=== PATIENT | female | born 1960 | race Two or more races ===

== ENCOUNTER 2016-08-15 13:53 | Inpatient (IN) | payer OTHER ==
[~2016-08-15] VITALS: Ht 154.9 cm; Wt 112.5 kg
[2016-10-20] MEDS ORDERED: TRAM50TA PO (10:17)
[2016-10-20] MEDS ORDERED: NEXI40CA PO (10:17)
[2016-10-20] MEDS ORDERED: BIOT10TA PO (10:17)
[2016-10-20] MEDS ORDERED: ATOR20TA15 PO (10:17)
[2016-10-20] MEDS ORDERED: BUPR150XL PO (10:17)
[2016-11-04] MEDS ORDERED: PRED5TAB PO (09:28)
[2016-11-05] MEDS ORDERED: SODIUM CHLORID 0.9% 500 ML IV PRN (06:00)
[2016-11-05] MEDS ORDERED: CLINDAMYCIN 900 MG/NS 100 ML IV SCH ×2 (06:00)
[2016-11-05] MEDS ORDERED: LACTATED RINGER'S 1000 ML IV PRN (06:00)
[2016-11-05] MEDS ORDERED: POVIDONE IODINE 7.5% SCRUB 118 ML BOTTLE TOPICAL SCH (06:00)
[2016-11-05] MEDS ORDERED: POVIDONE IODINE 5% (ANTISEPSIS KIT) 4 APPLICATIONS EACH NARE PRN (06:00)
[2016-11-05] MEDS ORDERED: DEXAMETHASONE SOD PHOS 4 MG/ML VIAL IV SCH (06:00)
[2016-11-05] MEDS ORDERED: INSULIN HUMAN REGULAR 1,000 UNITS/10 ML VIAL SQ PRN (06:00)
[2016-11-05] MEDS ORDERED: CHLORHEXIDINE GLUCONATE 2 % 1 PACK (2 CLOTHS) TOPICAL PRN (06:00)
[2016-11-05] MEDS ORDERED: METOPROLOL TARTRATE 25 MG TAB PO PRN (06:00)
[2016-11-05] MEDS ORDERED: VANCOMYCIN 1000 MG/NS 250 ML (for <70 kg) IV SCH ×2 (06:00)
[2016-11-05] MEDS ORDERED: DEXAMETHASONE SOD PHOS 20 MG/5 ML VIAL ONE (06:15)
[2016-11-05] MEDS ORDERED: SODIUM CHLORIDE 0.9% INJ 100 ML ONE (06:17)
[2016-11-05] MEDS ORDERED: GABA300C5 PO (06:35)
[2016-11-05 06:40] VITALS: BP 121/68; PULSE 77; RESP 16; TEMP 98.2; O2SAT 97
--- NOTE | 2016-11-05 06:51 | HHI.DCPOC ---
Discharge Care Plan Diagnosis: (1) Status post total knee replacement, right (2) Primary localized osteoarthrosis, lower leg Your Health Problems Are: Difficulty with ADL Goals to Promote Your Health * To prevent worsening of your condition and complications * To maintain your health at the optimal level Directions to Meet Your Goals Take your medications as prescribed Follow your dietary instruction Follow activity as directed Keep your appointments as scheduled Take your immunizations and boosters as scheduled If your symptoms worsen call your PCP, if no PCP go to Urgent Care Center or Emergency Room Smoking is Dangerous to Your Health. Avoid second hand smoke Call the 24-hour hour crisis hotline for domestic abuse at Janak Buckner Nov 05, 2016 06:51
--- NOTE | 2016-11-05 06:52 | HHI.FF ---
Face to Face Verification Diagnosis: (1) Primary localized osteoarthrosis, lower leg (2) Status post total knee replacement, right Physical Therapy Gait training, Transfer training, bed to chair Knee: Total knee Right LE Weight Bearing: WB as tolerated Right LE Range of Motion: Active ROM Nursing Nursing: Jason teaching, Dressing changes Dressing Changes: Daily dressing change I have seen patient Una Pelaez on 11/05/16. My clinical findings support the need for the requested home health care services because: Limited ability to care for self High risk of falls I certify that my clinical findings support that this patient is homebound because: Post-op weakness Unsteady gait/balance Janak Buckner Nov 05, 2016 06:51
[2016-11-05] MEDS ORDERED: WALKER WHEELS/F1 MIS (06:53)
[2016-11-05] MEDS ORDERED: CPMMACHINE (06:53)
[2016-11-05] MEDS ORDERED: COMMODE 3-IN-11 MIS (06:53)
[2016-11-05] MEDS ORDERED: ACETAMINOPHEN 1000 MG/100 ML VIAL IV ONE (07:48)
[2016-11-05] MEDS ORDERED: fentaNYL CITRATE 250 MCG/5 ML AMP ONE ×2 (07:48→11:01)
[2016-11-05] MEDS ORDERED: MIDAZOLAM HCL 2 MG/2 ML VIAL ONE (07:48)
[2016-11-05] MEDS ORDERED: FAMOTIDINE 20 MG/2 ML VIAL ONE (07:49)
[2016-11-05] MEDS ORDERED: GENTAMICIN SULFATE 80 MG/2 ML VIAL ONE (08:18)
[2016-11-05] MEDS ORDERED: TRANEXAMIC ACID INJ 1,125 MG in SODIUM CHLORIDE 0.9% INJ 100 ML IV SCH ×2 (08:30→11:15)
[2016-11-05] MEDS ORDERED: ROPIVACAINE PERI-ARTICULAR INJECTION. P-ARTICULR SCH ×5 (08:30)
[2016-11-05] MEDS ORDERED: BUPIVACAINE LIPOSOME PF 1.3% 20 ML VIAL ONE (10:23)
[2016-11-05] MEDS ORDERED: ACETAMINOPHEN/HYDROcodone 325 MG/5 MG TAB PO PRN (10:30)
[2016-11-05] MEDS ORDERED: ZOLPIDEM TARTRATE 5 MG TAB PO PRN (10:30)
[2016-11-05] MEDS ORDERED: MORPHINE SULFATE 4 MG/ML INJ IV PUSH PRN (10:30)
[2016-11-05] MEDS ORDERED: ALUMINUM/MAGNESIUM/SIMETH 30 ML CUP PO PRN (10:30)
[2016-11-05] MEDS ORDERED: SODIUM CHLORIDE 0.9% FLUSH 5 ML FLUSH IVF PRN (10:30)
[2016-11-05] MEDS ORDERED: ONDANSETRON HCL 4 MG/2 ML VIAL IVP PRN (10:30)
[2016-11-05] MEDS ORDERED: BISACODYL 10 MG SUPP RECTAL PRN (10:30)
[2016-11-05] MEDS ORDERED: NALOXONE HCL 0.4 MG/ML AMP IV PRN (10:30)
[2016-11-05] MEDS ORDERED: diphenhydrAMINE HCL 50 MG/ML VIAL IV PRN (10:30)
--- NOTE | 2016-11-05 10:31 | PD.OP ---
cc: Augustin Metz MD Operative Report Date of Surgery: Nov 05, 2016 Preoperative Diagnosis: Right knee severe osteoarthritis Postoperative Diagnosis: Same Procedure: Right total knee arthroplasty Anesthesia: Adductor canal block and general Surgeon: Augustin Metz Rotor Winder(s): BENTON Burnett The surgical procedure was assisted by my Advanced Registered Nurse Practitioner. My SCIENTIFIC PUBLICATIONS EDITOR presence was necessary throughout this case for the manipulation and positioning of the surgical extremity. My SCIENTIFIC PUBLICATIONS EDITOR was assisting me throughout the duration of this procedure. The skill set of an Advance Registered Nurse Practitioner was medically necessary to complete this procedure. During the surgical case, the surgical physician assistant was working at the back table and the Advance Registered Nurse Practitioner was directly assisting me. Operation and Findings: IMPLANTS: DePuy Attune: Patella: size 32. Femur, posterior stabilized size 4. Tibia, rotating platform size 3. Tibial insert, rotating platform, posterior stabilized size 5 mm thickness. ESTIMATED BLOOD LOSS: 350 cc TOURNIQUET TIME: 54 minutes at 300 mmHg pressure. JUSTIFICATION FOR PROCEDURE: The patient has end-stage osteoarthritis to the knee. There is an attached conservative measures pathway form in the chart that describes the nonoperative measures that were undertaken prior to consideration of surgical management. The patient understood the risks and benefits of surgical management. See my office notes for further details PROCEDURE: The patient was brought back to the operative theatre. Adequate anesthesia was obtained. The patient received intravenous clindamycin and vancomycin. The lower extremity was prepped and draped in the usual sterile fashion.The leg was exsanguinated, the tourniquet was raised. A standard anterior incision was performed followed by medial parapatellar arthrotomy was performed. End-stage arthritis was identified. Osteotomy of the patella was performed. We drilled holes for the patella. We trialed the patella component. We placed an intramedullary guide into the distal femur. We ultimately resected 13 mm off of the distal femur in 5 degrees of valgus. The remnants of the ACL and PCL were resected. Osteotomy of the proximal tibia was performed, resecting 5 mm off of the medial side. This was done with 3 degrees of posterior slope using an extramedullary guide. The distal end of the guide was placed in the mid aspect of the ankle. The femur was sized, and four chamfer cuts were completed in 3 of external rotation. We then cut the central box in the distal femur to replace the PCL. We resected the remnants of the menisci and removed osteophytes off of the femur and tibia. We then trialed the knee. We punched the tibia for the keel, and then used standard technique to cement in components. Excess cement was removed. We trialed the knee again and the final polyethylene thickness was chosen to provide extension to 0 degrees, and flexion of 140 degrees to gravity. The ligaments were appropriately balanced. Lateral release was necessary to obtain excellent patellofemoral tracking. The tourniquet was released and adequate hemostasis was obtained. An intra- articular injection of a ropivacaine cocktail was injected. The posterior knee was inspected for excess cement, which was removed. The final polyethylene was put into position after thorough irrigation. We then closed deep fascia with a #2 Stratafix followed by skin with 2-0 Vicryl followed by luis f. Postop plan is to weight-bear as tolerated. DVT prophylaxis will be performed with SCDkamla, MAXINE kemp, early mobilization, and Lovenox for 3 weeks. Augustin Metz MD Nov 05, 2016 10:31
[2016-11-05] MEDS ORDERED: ENOX40P SQ (10:33)
[2016-11-05] MEDS ORDERED: NORC5TAB PO (10:33)
[2016-11-05] MEDS ORDERED: Post-op Orders (for Pharmacy) MISC XX ONE (10:55)
[2016-11-05] MEDS: SODIUM CHLOR 0.9% 1000 ML INJ 1,000 ML IV SCH ×2 (11:05→20:28)
[2016-11-05] MEDS ORDERED: *morphine SULFATE 8 MG/ML PERIprocedure ONLY ONE ×2 (11:07→11:30)
--- NOTE | 2016-11-05 11:51 | PD.CONS ---
HPI Service [facility] [place] Hospitalists Consult Requested By Dr. Antoni Metz Reason for Consult Medical management Primary Care Physician Dr. Prasad Diagnoses: History of Present Illness Mrs. Pelaez is a pleasant 55 y/o female with hyperlipidemia and osteoarthritis. She was admitted to [facility] on 11/05/16 for right total knee arthroplasty with Dr. Metz. [facility] Hospitalist team was consulted to help with medical management. Pt is seen post-operatively in the PACU. Her vital signs are stable. Pt does not have a Mehta catheter in place. She was treated preoperatively for a [id number] UTI with Bactrim and then Levaquin. She denies any abd pain, nausea/vomiting, chest pain, SOB or palpitations. Review of Systems Constitutional: DENIES: Fever, Chills Eyes: DENIES: Vision loss Ears, nose, mouth, throat: DENIES: Hearing loss Respiratory: DENIES: Cough, Shortness of breath Cardiovascular: DENIES: Chest pain, Syncope, Lower Extremity Edema Gastrointestinal: DENIES: Abdominal pain, Diarrhea, Nausea, Vomiting Genitourinary: DENIES: Hematuria, Dysuria Musculoskeletal: COMPLAINS OF: Joint pain Integumentary: DENIES: Rash Neurologic: DENIES: Headache Psychiatric: DENIES: Confusion Past Family Social History Past Medical History Hyperlipidemia Osteoarthritis GERD Depression Past Surgical History Appendectomy Cholecystectomy Carpal tunnel release Reported Medications --Gabapentin 300 Mg PO TID (?QID) --Atorvastatin 20 Mg PO HS (?10Mg) -Tramadol (Tramadol HCl) 50 Mg Tab 50 Mg PO Q8H PRN -Biotin 10 Mg Tab 10 Mg PO DAILY -Wellbutrin Xl 24 HR (Bupropion HCl) 150 Mg Tab 150 Mg PO DAILY Allergies: Coded Allergies: Aspirin (Verified Allergy, Severe, Anaphylaxis, 11/05/16) Penicillin (Verified Allergy, Severe, Anaphylaxis, 11/05/16) Family History Noncontributory Social History Denies any alcohol, tobacco or illicit drug use Physical Exam Vital Signs Vital Signs Date Time Temp Pulse Resp B/P Pulse Ox O2 Delivery O2 Flow Rate FiO2 11/05/16 06:40 98.2 77 16 121/68 97 Physical Exam GENERAL: This is a well-nourished, well-developed patient, in no apparent distress. SKIN: No rashes, ecchymoses or lesions. Cool and dry. HEENT: Atraumatic. Normocephalic. No temporal or scalp tenderness. No scleral icterus. Airway patent. NECK: Trachea midline, supple, nontender. CARDIO: Regular. RESP: CTA bilaterally. No wheezes, rales, or rhonchi. ABD: +BS, soft, non-tender, nondistended. EXT: Right knee bandages are c/d/i NEURO: Awake and alert. Motor and sensory grossly within normal limits. Normal speech. Imaging Last Impressions Knee X-Ray 11/05/16 1028 Signed Impressions: Service Date/Time: Thursday, November 05, 2016 11:20 - CONCLUSION: 1. Status post right knee arthroplasty in anatomic alignment without significant acute bony fracture. Compa Simeon MD Assessment and Plan Problem List: (1) Status post total knee replacement, right Status: Acute Plan: - Pt s/p right TKA on 11/05/[address] Metz - Post-op pain control per Ortho - PT daily - IS - Constipation precautions. - DVT prophylaxis - Pt is planned to go home with HHC/PT at time of discharge. (2) Primary localized osteoarthrosis, lower leg Status: Chronic Plan: - See above. (3) Hyperlipidemia Status: Chronic Plan: - Pt is not on any prescription medications for cholesterol and states that she manages this with diet. Assessment and Plan Patient examined. Assessment and plan formulated with Eryn Menezes PA-C. I agree with the above. Problem Qualifiers (1) Primary localized osteoarthrosis, lower leg: Qualified Code: M17.11 - Primary localized osteoarthrosis, lower leg, right Eryn Menezes Nov 05, 2016 11:51 Brando Martini MD Nov 05, 2016 14:58
[2016-11-05] MEDS ORDERED: LACTATED RINGER'S 1000 ML INJ 1,000 ML IV ONE (12:00)
[2016-11-05] MEDS ORDERED: NEOSTIGMINE 3 MG/3 ML SYR IV ONE (12:00)
[2016-11-05] MEDS ORDERED: PROPOFOL 200 MG/20 ML AMP IV ONE (12:00)
[2016-11-05] MEDS ORDERED: ONDANSETRON HCL 4 MG/2 ML VIAL IV PUSH ONE (12:00)
--- NOTE | 2016-11-05 12:18 | RADRPT ---
EXAM DATE/TIME: 11/05/2016 11:20 [facility] COMPARISON: No previous studies available for comparison. INDICATIONS : Post-op right knee. MEDICAL HISTORY : None. SURGICAL HISTORY : None. ENCOUNTER: Initial ACUITY: 1 day PAIN SCORE: 10/10 LOCATION: Right Knee. FINDINGS: Postsurgical features of right knee arthroplasty. Arthroplasty components are in anatomic alignment. No significant acute bony fracture. Immediate postsurgical soft tissue features. CONCLUSION: 1. Status post right knee arthroplasty in anatomic alignment without significant acute bony fracture. Compa Simeon MD on November 05, 2016 at 12:15 Board Certified Radiologist. This report was verified electronically.
[2016-11-05] MEDS: GABAPENTIN 300 MG CAP PO SCH ×2 (13:00→17:13)
[2016-11-05] MEDS: ACETAMINOPHEN/HYDROcodone 325 MG/5 MG TAB PO PRN (15:43)
[2016-11-05] MEDS: CLINDAMYCIN INJ 900 MG in SODIUM CHLORIDE 0.9% INJ 100 ML IV SCH ×2 (15:47→22:37)
[2016-11-05] MEDS: MAGNESIUM HYDROXIDE SUSP 30 ML CUP PO PRN (15:52)
[2016-11-05 16:00] VITALS: BP 113/51; PULSE 82; RESP 18; TEMP 96.5; O2SAT 94
[2016-11-05 16:24] VITALS: O2SAT 96
[2016-11-05 19:00] VITALS: BP_SYST 108; BP_SYST 117; BP_DIAS 55; BP_DIAS 69; PULSE 67; PULSE 91; RESP 16; RESP 17; TEMP 95.7; TEMP 97.7; O2SAT 95; O2SAT 97
[2016-11-05] MEDS: SODIUM CHLORIDE 0.9% FLUSH 5 ML FLUSH IVF SCH (21:00)
[2016-11-05] MEDS ORDERED: ATORVASTATIN 20 MG TAB PO SCH (21:00)
[2016-11-05] MEDS: predniSONE 5 MG TAB PO SCH (21:25)
[2016-11-06 00:26] VITALS: BP 105/49; PULSE 83; RESP 16; TEMP 97.4; O2SAT 96
[2016-11-06 04:00] VITALS: BP 126/61; PULSE 83; RESP 17; TEMP 97.9; O2SAT 95
[2016-11-06 06:16] LABS: HEMATOCRIT 32.8 % (35.0-46.0); MEAN CELL VOLUME 87.5 FL (80.0-100.0); MEAN CORPUSCULAR HEMOGLOBIN 29.6 PG (27.0-34.0); MEAN CORPUSCULAR HGB CONC 33.8 % (32.0-36.0); PLATELET COUNT 272 TH/MM3 (150-450); RED BLOOD COUNT 3.74 MIL/MM3 (4.00-5.30); REVIEW FLAG FINAL; WHITE BLOOD COUNT 17.4 TH/MM3 (4.0-11.0)
[2016-11-06] MEDS: SODIUM CHLOR 0.9% 1000 ML INJ 1,000 ML IV SCH ×2 (06:28→10:08)
[2016-11-06] MEDS: CLINDAMYCIN INJ 900 MG in SODIUM CHLORIDE 0.9% INJ 100 ML IV SCH (06:38)
[2016-11-06] MEDS: ACETAMINOPHEN/HYDROcodone 325 MG/5 MG TAB PO PRN ×3 (06:38→15:30)
[2016-11-06] MEDS ORDERED: DEXAMETHASONE SOD PHOS 20 MG/5 ML VIAL IV ONE (07:45)
[2016-11-06 08:00] VITALS: BP 108/62; PULSE 83; RESP 18; TEMP 99; O2SAT 95
[2016-11-06] MEDS ORDERED: PANTOPRAZOLE SOD 40 MG DELAYED RELEASE TAB PO SCH (09:00)
[2016-11-06] MEDS: SODIUM CHLORIDE 0.9% FLUSH 5 ML FLUSH IVF SCH (09:00)
[2016-11-06] MEDS ORDERED: buPROPion HCL 150 MG SUSTAINED RELEASE TAB PO SCH (09:00)
[2016-11-06] MEDS: predniSONE 5 MG TAB PO SCH (09:52)
[2016-11-06] MEDS: MAGNESIUM HYDROXIDE SUSP 30 ML CUP PO PRN (09:53)
[2016-11-06] MEDS ORDERED: ENOXAPARIN SODIUM 40 MG/0.4 ML SYRINGE SQ SCH (10:00)
[2016-11-06] MEDS ORDERED: PNEUMOCOCCAL POLYVALENT INJ 25 MCG/0.5 ML SYR IM ONE (10:00)
[2016-11-06] MEDS ORDERED: WELLTAB39 PO (10:00)
[2016-11-06 11:58] VITALS: BP 97/59; PULSE 69; RESP 18; TEMP 97.3; O2SAT 96
--- NOTE | 2016-11-06 12:22 | PD.ORT.PN ---
Subjective Post Op Day #: 1 Subjective Remarks Patient resting comfortably with minimal pain. Patient ambulatory and voiding. Patient wants to go home with home health today. Objective Vitals Vital Signs Date Time Temp Pulse Resp B/P Pulse Ox O2 Delivery O2 Flow Rate FiO2 11/06/16 11:58 97.3 69 18 97/59 96 11/06/16 08:00 99.0 83 18 108/62 95 11/06/16 04:00 97.9 83 17 126/61 95 11/06/16 00:26 97.4 83 16 105/49 96 11/05/16 19:00 95.7 67 17 117/55 97 11/05/16 19:00 97.7 91 16 108/69 95 11/05/16 16:24 96 21 11/05/16 16:00 96.5 82 18 113/51 94 11/05/16 13:15 98.0 88 16 123/58 98 Nasal Cannula 2 11/05/16 12:30 82 16 109/59 95 Nasal Cannula 2 I/O 11/05/16 11/05/16 11/05/16 11/06/16 11/06/16 11/06/16 07:00 15:00 23:00 07:00 15:00 23:00 Intake Total 1400 ml 960 ml 480 ml Output Total 100 ml Balance 1300 ml 960 ml 480 ml Intake Oral 960 ml 480 ml IV Total 300 ml Other 1100 ml Output Estimated Blood Loss 100 ml # Voids 3 4 # Bowel Movements 0 0 Result Diagram: 11/06/16 0555 Procedures Right TKA Objective Remarks The patient's dressings were changed with scant serosanguineous drainage. Incision is well approximated with surgical clips intact. No redness or s/s of infection. Mild ecchymosis. EHL/TA/G intact. No calf tenderness or swelling. + SILT. Assessment & Plan Ortho Post Op Day #: 1 Problem List: Assessment and Plan POD #1: Right TKA 1. WBAT RLE 2. Lovenox for DVT prophylaxis x 3 weeks 3. Ice to the right knee PRN 4. Levaquin ABX for UTI RX in chart 5. Stable for discharge home with home health today. Janak Buckner Nov 06, 2016 12:22
[2016-11-06] MEDS ORDERED: LEVA500T20 PO (12:24)
[2016-11-06] MEDS: GABAPENTIN 300 MG CAP PO SCH ×2 (12:40→17:08)
[2016-11-06] MEDS ORDERED: LEVA750T9 PO (12:42)
[2016-11-06 15:54] VITALS: BP 108/62; PULSE 75; RESP 18; TEMP 97.1; O2SAT 95
[2016-11-06] MEDS ORDERED: DOCUSATE SODIUM 100 MG CAP PO SCH (21:00)
[2016-11-06] MEDS ORDERED: MULTIVITAMINS/MINERALS THERAPEUTIC TAB PO SCH (21:00)
== END 2016-11-06 18:08 | disposition home health service (06) | DRG 470 ==
LOC: EDUNIT# 09-03 11:30 → HSDI 11-05 05:33 → N06B 11-05 13:55
PROVIDERS: ADMIT Orthopaedic Surgery; ATTEND Orthopaedic Surgery
PROC: 0SRC0J9 Replacement of Right Knee Joint with Synthetic Substitute, Cemented, Open Approach (ICD-10-PCS; principal; 2016-11-05 08:01)
DX: M17.11 Unilateral primary osteoarthritis, right knee (principal); N39.0 Urinary tract infection, site not specified; Z68.42 Body mass index [BMI] 45.0-49.9, adult; E78.5 Hyperlipidemia, unspecified; M54.9 Dorsalgia, unspecified; K21.9 Gastro-esophageal reflux disease without esophagitis; F32.9 Major depressive disorder, single episode, unspecified; E66.9 Obesity, unspecified
CPT/HCPCS: 73560; 85027; 94150; C1776; C9290; J0131; J0171; J0735; J1100; J1580; J1650; J1885; J2250; J2270; J2405; J2710; J2795; J3010; J3370; J7030; J7050; J7120; J7512; L1830

== ENCOUNTER → 2016-10-20 | Outpatient (CLI) | payer OTHER ==
[~2016-10-20] MED LIST: ATOR20TA15 PO; BIOT10TA PO; BUPR150XL PO; NEXI40CA PO; PRED5TAB PO; TRAM50TA PO
[2016-10-20 10:24] LABS: BASOPHIL # 0.1 TH/MM3 (0-0.2); BASOPHIL % 0.7 % (0.0-2.0); EOSINOPHIL # 0.3 TH/MM3 (0-0.4); EOSINOPHIL % 3.1 % (0.0-4.0); HEMATOCRIT 38.5 % (35.0-46.0); HEMO FLAGS DIFF FINAL; LYMPH % 25.9 % (9.0-44.0); LYMPHOCYTE # 2.6 TH/MM3 (1.0-4.8); MEAN CELL VOLUME 88.6 FL (80.0-100.0); MEAN CORPUSCULAR HGB CONC 33.9 % (32.0-36.0); MONO % 10.6 % (0.0-8.0); NEUT % 59.7 % (16.0-70.0); PLATELET COUNT 284 TH/MM3 (150-450); RED BLOOD COUNT 4.34 MIL/MM3 (4.00-5.30); RED CELL DISTRIBUTION WIDTH 13.7 % (11.6-17.2); WHITE BLOOD COUNT 10.1 TH/MM3 (4.0-11.0)
[2016-10-20 10:35] LABS: APTT (PATIENT) 25.8 SEC (24.3-30.1); PROTHROMBIN TIME - PATIENT 10.6 SEC (9.8-11.6)
[2016-10-20 10:44] LABS: BACTERIA, URINE RARE /hpf; BLOOD, URINE NEG (NEG); GLUCOSE,URINE NEG (NEG); KETONE, URINE NEG (NEG); NITRITE,URINE NEG (NEG); PH, URINE 6.5 (5.0-8.5); RENAL EPITHELIAL CELLS <1 /hpf; SQUAMOUS EPITHELIAL CELL URINE 1 /hpf (0-5); URINE COLOR YELLOW (YELLW/STRAW)
[2016-10-20 10:45] LABS: COMMENT (UR) CULTURE INDICATED; CULTURE IF INDICATED CULTURE INDICATED
[2016-10-20 10:49] LABS: ANION GAP 8 MEQ/L (5-15); AST (GOT) 19 U/L (15-37); BICARBONATE 28.3 MEQ/L (21.0-32.0); BLOOD UREA NITROGEN 13 MG/DL (7-18); CHLORIDE 106 MEQ/L (98-107); GLOMERULAR FILTRATION RATE 53 ML/MIN (>89); GLUCOSE,FASTING 89 MG/DL (74-99); POTASSIUM 3.9 MEQ/L (3.5-5.1); SODIUM (NA) 142 MEQ/L (136-145)
[2016-10-20 10:50] LABS: ALT (GPT) 29 U/L (10-53)
[2016-10-20 10:52] LABS: WESTERGREN SEDIMENTATION RATE 44 mm/hr (0-30)
[2016-10-20 10:53] LABS: ALKALINE PHOSPHATASE 111 U/L (45-117); TOTAL BILIRUBIN ADULT 0.3 MG/DL (0.2-1.0)
--- NOTE | 2016-10-20 11:55 | RADRPT ---
EXAM DATE/TIME: 10/20/2016 11:37 [facility] COMPARISON: No previous studies available for comparison. INDICATIONS : Evaluate for pneumonia, pneumothorax, or communicable disease. Pre op for MEDICAL HISTORY : Asthma. SURGICAL HISTORY : Appendectomy. Cholecystectomy. ENCOUNTER: Initial ACUITY: 1 day PAIN SCORE: 0/10 LOCATION: Bilateral chest FINDINGS: PA and lateral views of the chest demonstrate the lungs to be symmetrically aerated without evidence of mass, infiltrate or effusion. The cardiomediastinal contours are unremarkable. Osseous structure s are intact. CONCLUSION: No acute disease. Zachary Kelly MD FACR on October 20, 2016 at 11:52 Board Certified Radiologist. This report was verified electronically.
--- NOTE | 2016-10-21 14:23 | EKG ---
Date Performed: 10/20/2016 Time Performed: 09:39:22 PTAGE: 55 years EKG: Sinus rhythm MINIMAL VOLTAGE CRITERIA FOR LVH, CONSIDER NORMAL VARIANT BORDERLINE ECG NO PREVIOUS TRACING DOCTOR: Tigre Hein Interpretating Date/Time 10/21/2016 14:22:44
== END ==
LOC: CPRE 09:13
PROVIDERS: ATTEND Orthopaedic Surgery
DX: Z01.810 Encounter for preprocedural cardiovascular examination (principal); Z01.811 Encounter for preprocedural respiratory examination; Z01.812 Encounter for preprocedural laboratory examination; M25.50 Pain in unspecified joint; R94.31 Abnormal electrocardiogram [ECG] [EKG]; B95.1 Streptococcus, group B, as the cause of diseases classified elsewhere; R82.99 Other abnormal findings in urine
CPT/HCPCS: 71020; 80053; 81001; 85025; 85610; 85652; 85730; 86403; 87086; 93005